=== PATIENT | male | born 1945 | race Caucasian/White ===

== ENCOUNTER 2019-09-30 09:56 | Outpatient (CLI) | payer MEDICARE, OTHER, SELFPAY ==
--- NOTE | ~2019-09-30 | XR_ITS ---
XR abdomen/kub 1V 09/30/2019 10:26 Indication: Malignant neoplasm of the prostate Procedure: KUB Comparison: 09/06/2018 Findings: Bowel gas pattern is nonobstructive. There are cholecystectomy clips. No definite renal or ureteral stones. There are small pelvic phleboliths. Mild-moderate lumbar spondylosis. No lytic or sc lerotic lesions of the bones. Impression: 1: No acute abdominal abnormality. Reviewed, dictated and finalized at location A. Impression: 1: No acute abdominal abnormality.
== END 2019-09-30 09:57 | disposition home or self-care (01) ==
LOC: ANHIMG 10:05
PROVIDERS: PCP Family Medicine; Visit Provider Urology
DX: C61 Malignant neoplasm of prostate (principal)
CPT/HCPCS: 74018

== ENCOUNTER 2020-09-15 12:14 | Outpatient (CLI) | payer MEDICARE, OTHER, SELFPAY ==
--- NOTE | ~2020-09-15 | XR_ITS ---
XR abdomen/kub 1V 09/15/2020 12:38 Indication: Kidney stones Procedure: KUB Comparison: Comparison to multiple prior studies sequentially, with oldest reviewed study dated 09/20. Findings: Bowel gas pattern is nonobstructive. There is a small stone in the lower pole of the left k idney. There are cholecystectomy clips. Moderate lumbar spondylosis. Nonobstructive bowel gas pattern with moderate colonic fecal loading. Impression: 1: Left nephrolithiasis. Reviewed, dictated and finalized at location A. Impression: 1: Left nephrolithiasis.
== END 2020-09-15 12:15 | disposition home or self-care (01) ==
LOC: ANHIMG 12:21
PROVIDERS: PCP Family Medicine; Visit Provider Urology
DX: N20.0 Calculus of kidney (principal)
CPT/HCPCS: 74018

== ENCOUNTER 2021-09-14 13:25 | Outpatient (CLI) | payer MEDICARE, OTHER, SELFPAY ==
--- NOTE | ~2021-09-14 | XR_ITS ---
XR abdomen/kub 1V 09/14/2021 13:37 INDICATION: Follow-up kidney stones TECHNIQUE: KUB COMPARISON: 09/15/2020 FINDINGS: Bowel gas pattern is normal. There is no evidence of free air, mass, organomegaly, ascites or obstruction. No abnormal calculi are seen. Bowel content obscures the left kidney limiting evalu ation for renal stones. There are cholecystectomy clips. The bones appear intact. There is osteoarthr itis of the hips and degenerative change of the lumbar spine. IMPRESSION: 1: No acute abdominal abnormality identified. Reviewed, dictated and finalized at location A.
== END 2021-09-14 13:26 | disposition home or self-care (01) ==
PROVIDERS: PCP Family Medicine; Visit Provider Urology
DX: N20.0 Calculus of kidney (principal); M16.0 Bilateral primary osteoarthritis of hip; M47.816 Spondylosis without myelopathy or radiculopathy, lumbar region
CPT/HCPCS: 74018

== ENCOUNTER 2022-09-27 11:24 | Outpatient (CLI) | payer MEDICARE, OTHER, SELFPAY ==
--- NOTE | ~2022-09-27 | XR_ITS ---
EXAMINATION: XR abdomen/kub 1V INDICATION: Personal history of urinary tract calculi TECHNIQUE: Supine views of the abdomen were obtained on 2 radiographs. COMPARISON: 09/14/2021 FINDINGS: No urolithiasis is identified. There are phleboliths of the pelvis. Surgical clips in the r ight upper quadrant are likely from prior cholecystectomy. The bowel gas pattern is normal. The visua lized lung bases are clear. 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 IMPRESSION: 1. No urolithiasis identified. Reviewed, dictated and finalized at location F.
== END 2022-09-27 11:25 | disposition home or self-care (01) ==
LOC: ANHIMG 11:36
PROVIDERS: PCP Internal Medicine; Visit Provider Nurse Practitioner Adult Health
DX: Z87.442 Personal history of urinary calculi (principal)
CPT/HCPCS: 74018

== ENCOUNTER 2023-04-29 11:35 | Emergency (ER) | payer MEDICARE, OTHER, SELFPAY ==
--- NOTE | 2023-04-29 11:41 | ED.GENADULT ---
HPI - General Adult General Chief complaint: Ear Stated complaint: lt ear pain Time Seen by Provider: 04/29/23 11:41 Source: patient Mode of arrival: ambulatory Limitations: no limitations History of Present Illness HPI narrative: 77-year-old male patient presents to [facility] with complaints of pain to the left ear. Patient states about a week ago he was cleaning out his ear with hydrogen peroxide water and irritable and states that he got sharp pain to the left ear whenever he was squeezing the ball. Patient thinks he might have been a little too aggressive. Patient states he did notice a tiny bit of blood at that time which he cleaned out with Q-tip. Patient states he already has decreased hearing to the left ear anyway and has seen an ENT in the past for this. Patient states he went to come today just to make sure he did not have a perforation of the ear. Patient also noticed some lymph node swelling to the neck under the left ear yesterday. Denies fevers, body aches or chills. Related Data Home Medications Medication Instructions Recorded Confirmed allopurinol 300 mg tablet mg 04/29/23 bimatoprost 0.01 % eye drops drp 04/29/23 ([facility]) clobetasol 04/29/23 potassium citrate 10 mEq (1,080 meq PO 04/29/23 mg) tablet,extended release Allergies Allergy/AdvReac Type Severity Reaction Status Date / Time No Known Allergies Allergy Verified 04/29/23 12:04 Review of Systems Review of Systems: CONSTITUTIONAL: Denies fever, chills, or sweats. EYES: Denies visual changes, redness, or discharge. ENT: Denies rhinorrhea, congestion, sore throat, Positive left otalgia. CARDIOVASCULAR: Denies chest pain, palpitations, or edema. RESPIRATORY: Denies cough or dyspnea. GASTROINTESTINAL: Denies abdominal pain, nausea, vomiting, or diarrhea. GENITOURINARY: Denies dysuria or hematuria. SKIN: Denies rash or itching. MUSCULOSKELETAL: Denies back pain, joint pain, or myalgia. NEUROLOGIC: Denies headache, numbness, or weakness. PSYCHIATRIC: Denies anxiety or depression. PENDING SALE TO [facility] Surgical History Surgical History (Updated 04/29/23 @ 11:42 by ALESSANDRO Adihkari) Hx of cholecystectomy Family History Family History Mother Cerebrovascular accident Father Carcinoma of colon Sibling Family history of malignant neoplasm of urinary bladder Family history of malignant neoplasm of ovary Social History Social History Smoking status: Never smoker Alcohol intake: never Comments At the time of my signature I agree with nursing past medical history, surgical, social, and family history. There is no relevant family history pertinent to the presenting complaint. Exam Narrative: GENERAL: Well-appearing, well-nourished, and in no acute distress. HEAD: Normocephalic, atraumatic. EYES: PERRLA and EOMI. ENT: Nares clear, no rhinorrhea or epistaxis. Mucous membranes moist. there is blood present to the left canal and a perforation noted to the 10:00 a.m. area of the tympanic membrane with what appears to be some yellow fluid behind the TM. NECK: Supple. Very small lymphadenopathy noted to the preauricular lymph node on the left side CHEST: Clear to auscultation. No respiratory distress. HEART: Regular rate and rhythm. No murmur heard. Normal peripheral pulses. ABDOMEN: Soft, nontender, nondistended, normal active bowel sounds. EXTREMITIES: Normal range of motion. No edema. SKIN: Warm, dry, no rash. NEURO: No focal deficits. Alert and oriented x3. Course Course Level of Care: Express Care Visit Vital Signs Vital signs: Vital Signs Temperature 36.0 C L 04/29/23 12:00 Pulse Rate 94 04/29/23 12:00 Respiratory Rate 18 04/29/23 12:00 Blood Pressure 153/82 H 04/29/23 12:00 Pulse Oximetry 100 04/29/23 12:00 Oxygen Delivery Room Air 04/29/23 12:00 Temperature 36.0 C L 0
[2023-04-29 12:00] VITALS: BP 153/82; PULSE 94; RESP 18; TEMP 36; O2SAT 100
== END 2023-04-29 12:39 | disposition home or self-care (01) ==
PROVIDERS: Emergency Provider Nurse Practitioner Family
DX: H66.92 Otitis media, unspecified, left ear (principal); H72.92 Unspecified perforation of tympanic membrane, left ear
CPT/HCPCS: 99213; G0463

== ENCOUNTER 2023-10-01 11:30 | Outpatient (CLI) | payer MEDICARE, OTHER, SELFPAY ==
--- NOTE | ~2023-10-01 | XR_ITS ---
Supine and upright views of the abdomen Clinical history: Kidney stone COMPARISON: 09/27/2022 Findings: Bowel gas pattern is nonspecific. No evidence for obstruction or free air. No abnormal mass lesion or calcification is seen. Stable degenerative change of the lumbar spine. Cholecystectomy cli ps noted. Impression: No definite renal stone seen. Reviewed, dictated and finalized at [facility]. Impression: No definite renal stone seen.
== END 2023-10-01 11:31 | disposition home or self-care (01) ==
LOC: ANHIMG 11:50
PROVIDERS: Visit Provider Urology
DX: N20.0 Calculus of kidney (principal)
CPT/HCPCS: 74018